=== PATIENT | male | born 1965 | race Caucasian/White ===

== ENCOUNTER → 2017-03-18 | Outpatient (CLI) | payer BC ==
[~2017-03-18] MED LIST: ASPIRIN81 M2 PO
--- NOTE | ~2017-03-18 | CR63 ---
[facility] A Service of [facility] & [facility] RADIOLOGY TEXT RESULTS PATIENT: GAYLE ARNETT JR LOCATION: [facility] : [birth year] UNIT #: [id number] AGE: [address]: FÉLIX HURT MD SEX: M ORDER DR: [id number] [facility] [address] [place], [place] [address] [id number] O MR#: [id number] Acc #: [id number] NAME: GAYLE ARNETT : 1965 SEX: M STUDY DATE/TIME: 03/18/2017 15:53 UNIT: [facility] ROOM: STUDY DESCRIPTION: CR Chest 2 View Attending Physician: Félix Hurt M.D. Referring Physician: Félix Hurt M.D. Ordering Physician: Félix Hurt M.D. Primary Care Physician: Félix Hurt M.D. MEDICAL IMAGING REPORT This report is preliminary unless electronic signature is present EXAM Chest PA and lateral 03/18/2017 HISTORY Polycythemia chest congestion today. FINDINGS PA and lateral examination of the chest upright shows a good expansion of the parenchyma with a normal distribution of the pulmonary vascularity. There is no indication of congestion, effusion, infiltrate, tumor, or nodular density. The pleural reflections and diaphragmatic contours are normal. The cardiac silhouette and mediastinal anatomy is within normal limits. IMPRESSION Normal chest. Dictated by... Al Vu M.D. THIS IS AN ELECTRONICALLY VERIFIED REPORT Al Vu M.D. at 03/19/2017 2:05 PM STEPHY/tristan TD: 03/18/2017 22:06 JOB #: [id number] MEDICAL IMAGING REPORT Page 1 of 1 COPY
== END | disposition home or self-care (01) ==
LOC: CRAD 15:31 → CLAB 15:31
DX: D75.1 Secondary polycythemia (principal)
CPT/HCPCS: 71020

== ENCOUNTER → 2017-07-11 | Day surgery (SDC) | payer BC ==
--- NOTE | ~2017-07-11 | OR ---
Unit #: [id number] #: [id number] Patient: GAYLE ARNETT JR [id number] [address] [address] [id number] O MR#: [id number] NAME: GAYLE ARNETT JR ROOM: Date of Procedure: 07/11/2017 Admission Date: 07/11/2017 Surgeon: Duarte Dawn III, M.D. : 1965 Attending Physician: Duarte Dawn III, M.D. Primary Care Physician: Félix Hurt M.D. OPERATIVE REPORT PREOPERATIVE DIAGNOSIS Screening colonoscopy. POSTOPERATIVE DIAGNOSIS Normal colonoscopy to cecum. PROCEDURE PERFORMED Colonoscopy to cecum. ANESTHESIA MAC. SPECIMENS None. COMPLICATIONS None apparent. INDICATIONS FOR PROCEDURE This is a 52-year-old gentleman, who is referred for screening colonoscopy. DESCRIPTION OF PROCEDURE After consent was obtained, the patient was brought to the endoscopy suite and placed in the left lateral decubitus position. We titrated the above sedation and I performed a rectal exam and did not feel any masses. The scope was placed within the rectal vault. Air was insufflated. I navigated the scope all the way to the cecum without any difficulty. He had normal mucosa. There were no polyps or masses. He had no evidence of any diverticular disease. The scope was retroflexed within the rectum and no other masses were seen. The scope was then carefully withdrawn. The patient tolerated the procedure without any problems and returned to the recovery room in stable condition. Dictated by... Duarte Dawn III, M.D. VCL/chasity TD: 07/11/2017 07:29 JOB #: [id number] Unit #: [id number] #: [id number] Patient: GAYLE ARNETT JR OPERATIVE REPORT Page 1 of 1 X Duarte Dawn III, MD X PROCEDURE OPERATIVE NOTE
== END | disposition home or self-care (01) ==
LOC: COPS 05:31
DX: Z12.11 Encounter for screening for malignant neoplasm of colon (principal); Z87.442 Personal history of urinary calculi; Z80.0 Family history of malignant neoplasm of digestive organs
CPT/HCPCS: J2250